=== PATIENT | male | born 1990 | race Two or more races ===

== ENCOUNTER 2017-04-30 16:26 | Emergency (ER) | payer OTHER ==
[~2017-04-30] VITALS: Ht 177.8 cm; Wt 97.5 kg
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
[2017-04-30 17:29] LABS: BASOPHILS # (AUTO) 0.2 /CMM (0.0-0.2); BASOPHILS % (AUTO) 1.9 % (0.0-2.0); EOSINOPHILS # (AUTO) 0.3 /CMM (0.0-0.7); EOSINOPHILS % (AUTO) 3.1 % (0.0-6.0); HEMATOCRIT 44 % (39-51); HEMOGLOBIN 15.6 g/dL (13.5-17.5); LYMPHOCYTES # (AUTO) 0.5 /CMM (0.8-4.8); LYMPHOCYTES % (AUTO) 5.5 % (20.0-44.0); MEAN CORPUSCULAR HEMOGLOBIN 29 PG (26.0-33.0); MEAN CORPUSCULAR HGB CONC 35 g/dl (31.0-36.0); MEAN CORPUSCULAR VOLUME 83 fL (80-96); MONOCYTES # (AUTO) 0.6 /CMM (0.1-1.30); MONOCYTES % (AUTO) 5.9 % (2.0-12.0); NEUTROPHILS % (AUTO) 83.6 % (43.0-81.0); PLATELET COUNT (AUTO) 134 /CMM (150-450); RDW COEFFICIENT OF VARIATION 12.4 (11.5-15.0); RED BLOOD CELL COUNT(AUTO) 5.35 MIL/uL (4.5-6.0); WHITE BLOOD COUNT (AUTO) 9.6 K/uL (4.3-11.0)
[2017-04-30 17:38] LABS: ALANINE AMINOTRANSFERASE 39 U/L (12-78); ALBUMIN 4.1 g/dL (3.4-5.0); ALCOHOL, BLOOD < 3 mg/dL (0-0); ALKALINE PHOSPHATASE 68 U/L (46-116); ASPARTATE AMINOTRANSFERASE 23 U/L (15-37); BILIRUBIN,TOTAL 0.4 mg/dL (0.2-1.0); CALCIUM, SERUM 9.3 mg/dL (8.5-10.1); CARBON DIOXIDE 26 mmol/L (21-32); CHLORIDE 103 mmol/L (98-107); CREATININE 1.4 mg/dL (0.6-1.3); GLUCOSE 98 mg/dL (74-106); POTASSIUM 4.3 mmol/L (3.5-5.1); SODIUM SERUM 138 mmol/L (136-145); TOTAL PROTEIN, SERUM 7.8 g/dL (6.4-8.2)
[2017-04-30 17:40] LABS: INR 0.91 (0.87-1.13); PROTHROMBIN TIME 9.5 SECS (9.5-12.7)
[2017-04-30 17:48] LABS: UREA NITROGEN, BLOOD 14 mg/dL (7-18)
[2017-04-30] MEDS ORDERED: IOHEXOL-300 100 ML VIAL IV ONE (17:58)
[2017-04-30] MEDS ORDERED: IV NS 0.9% 250 ML IV ONE (17:58)
[2017-04-30] MEDS ORDERED: ONDANSETRON HCL/PF 4 MG/2 ML VIAL ONE (18:07)
[2017-04-30] MEDS ORDERED: MORPHINE SULFATE INJ 2 MG/ML DISP.SYRIN ONE (18:07)
--- NOTE | 2017-04-30 18:18 | NUR ---
PATIENT CAME BACK FROM CT, PT REMAINS IN STABLE CONDITION AT THIS TIME.
[2017-04-30] MEDS: IV NS 0.9% 1,000 ML BAG IV ONE (18:22)
[2017-04-30] MEDS: ONDANSETRON HCL/PF - ER 4 MG/2 ML VIAL IV ONE (18:24)
[2017-04-30] MEDS: MORPHINE SULFATE INJ 2 MG/ML DISP.SYRIN IV ONE (18:27)
--- NOTE | 2017-04-30 18:49 | NUR ---
REPORT GIVEN TO JANA HART FOR SOHEILA.
--- NOTE | 2017-04-30 19:15 | NUR ---
IV removed. Catheter intact and site benign. Pressure and 4x4 applied to site. No bleeding noted.Patient discharged to home in stable condition. Written and verbal after care instructions given. Patient verbalizes understanding of instruction and Rx. Pt ambulated out with a steady gait. Pt's is driving pt home. VSS.
[2017-04-30 19:20] VITALS: BP 138/75
== END 2017-04-30 19:15 | disposition home or self-care (01) ==
LOC: ER 16:31
DX: R51 Headache (principal); M54.2 Cervicalgia; M25.511 Pain in right shoulder; M25.521 Pain in right elbow; R07.89 Other chest pain; R10.9 Unspecified abdominal pain; M25.562 Pain in left knee; M54.9 Dorsalgia, unspecified; R42 Dizziness and giddiness; R11.0 Nausea; J45.909 Unspecified asthma, uncomplicated; K21.9 Gastro-esophageal reflux disease without esophagitis; Z91.030 Bee allergy status; F10.10 Alcohol abuse, uncomplicated; V09.9XXA Pedestrian injured in unspecified transport accident, initial encounter; Y93.89 Activity, other specified; Y92.488 Other paved roadways as the place of occurrence of the external cause; Y99.8 Other external cause status
CPT/HCPCS: 36415; 70450; 71010; 71260; 72125; 73030; 73080; 74160; 80053; 84484; 85025; 85730; 93005; 96361; 96374; 96375; 99285; A4606; G0480; J2270; J2405 ×2; J7030; J7050; Q9967; Z7610